=== PATIENT | female | born 1985 | race Caucasian/White ===

== ENCOUNTER → 2017-10-18 | Outpatient (CLI) | payer MEDICAID ==
[~2017-10-18] MED LIST: IOPAMIDOL (ISOVUE-370) 150 ML BTL IV ONE
== END ==
LOC: FIMAGING 10:34
PROVIDERS: ATTEND Podiatrist Primary Podiatric Medicine
DX: L97.509 Non-pressure chronic ulcer of other part of unspecified foot with unspecified severity (principal); R23.8 Other skin changes; B35.3 Tinea pedis
CPT/HCPCS: Q9967

== ENCOUNTER 2018-03-08 07:52 | Day surgery (SDC) | payer MEDICAID ==
--- NOTE | 2018-03-08 07:21 | PDHPUP ---
History & Physical Update H&P update statement: This history and physical update is based on an assessment of the patient which was completed after admission or registration (within 24 hours), but prior to the surgery/procedure. H&P update: H&P reviewed & patient examined H&P changes: none
[2018-03-08] MEDS ORDERED: POLYMYXIN B SULFATE 500,000 UNIT/10 ML SYR IRR ONE ×2 (08:22→10:36)
[2018-03-08] MEDS ORDERED: EPINEPHrine 1 MG/ML INJ ONE (08:22)
[2018-03-08] MEDS ORDERED: BUPIVACAINE 0.25% 30 ML SDV ONE (08:22)
[2018-03-08] MEDS ORDERED: BACITRACIN 50,000 UNITS/10 ML SYR IRR ONE ×2 (08:23→10:37)
[2018-03-08] MEDS ORDERED: ceFAZolin 2 GM/DEXTROSE 100 ML IV ONE (08:46)
[2018-03-08] MEDS ORDERED: LR 1,000 ML IV ONE (08:47)
[2018-03-08] MEDS ORDERED: LIDOCAINE 1% 2 ML INJ ID PRN (08:47)
[2018-03-08] MEDS ORDERED: LIDOCAINE 2% 5 ML SDV ONE (09:51)
--- NOTE | 2018-03-08 09:55 | PDANEPAE ---
ANE History of Present Illness here for toe amputation ANE Past Medical History - Cardiovascular History Hx Hypertension: No Hx Arrhythmias: No Hx Chest Pain: No Hx Coronary Artery / Peripheral Vascular Disease: Yes Hx CHF / Valvular Disease: No Hx Palpitations: No Cardiovascular History Comment: microvascular disease of right foot - Pulmonary History Hx COPD: No Hx Asthma/Reactive Airway Disease: No Hx Recent Upper Respiratory Infection: No Hx Oxygen in Use at Home: No Hx Sleep Apnea: No Sleep Apnea Screening Result - Last Documented: Negative Pulmonary History Comment: seasonal allergies with cough - Neurologic History Hx Cerebrovascular Accident: No Hx Seizures: No Hx Dementia: No - Endocrine History Hx Diabetes: No Obesity: yes, moderate - Renal History Hx Renal Disorders: No - Liver History Hx Hepatic Disorders: No - Neurological & Psychiatric Hx Hx Neurological and Psychiatric Disorders: Yes 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 depth perception issues - Cancer History Hx Cancer: No - Congenital Disorder History Hx Congenital Disorders: Yes Congenital History Comment: high cholesterol - GI History Hx Gastrointestinal Disorders: Yes Gastrointestinal History Comment: elimination issues - Other Health History Other Health History: left foot may has problems with wound issues. seasonique for heavy menstrution - Chronic Pain History Chronic Pain: Yes (neck on right spasms into right shoulder) - Surgical History Prior Surgeries: major procedures as an toddler dorsal rhizotomy. last surgery age 14 ANE Review of Systems Review of systems is: negative Review of Systems: - Exercise capacity METS (RN): 2 METS ANE Patient History - Allergies Allergies/Adverse Reactions: escitalopram oxalate [From Lexapro] Allergy (Verified 03/07/18 16:30) Other-Enter Comments Latex, Natural Rubber Allergy (Verified 03/07/18 16:30) Rash lorazepam [From Ativan] Allergy (Verified 03/07/18 16:30) Other-Enter Comments olanzapine [From Zyprexa] Allergy (Verified 03/07/18 16:30) Other-Enter Comments - Home Medications Home medications: home medication list seen and reviewed Home Medications: .Seasonique 04/30/13 [Last Taken 03/07/18] Inulin [Fiber Gummies] 04/30/13 [Last Taken 02/15/18] Melatonin [Melatonin 5 mg] 04/30/13 [Last Taken 03/07/18 21:00] Simvastatin [Zocor 10 mg (RX)] 08/13/13 [Last Taken 03/07/18 21:00] Oxybutynin 03/07/18 [Last Taken 03/07/18 21:00] Aleve 220 MG (*) 220 mg PO PRN 03/08/18 [Last Taken 03/01/18] - NPO status NPO Status: no food or drink >8 hours NPO Since - Liquids (Date): 03/07/18 NPO Since - Liquids (Time): 21:00 NPO Since - Solids (Date): 03/07/18 NPO Since - Solids (Time): 17:00 - Smoking Hx Smoking Status: Never smoked - Family Anes Hx Family Hx Anesthesia Complications: none ANE Labs/Vital Signs - Vital Signs Vital Signs: reviewed preoperatively; see RN documention for details Blood Pressure: 130/85 Heart Rate: 96 Respiratory Rate: 16 O2 Sat (%): 94 Height: 170.18 cm Weight: 102.8 kg ANE Physical Exam - Airway Neck exam: FROM Mallampati Score: Class 2 Mouth exam: normal dental/mouth exam - Pulmonary Pulmonary: no respiratory distress - Cardiovascular Cardiovascular: regular rate and rhythym - ASA Status ASA Status: III ANE Anesthesia Plan Anesthesia Plan: [facility] Anesthesia: popliteal SNB
[2018-03-08] MEDS ORDERED: MIDAZOLAM 2 MG/2 ML VIAL IVP ONE (10:18)
[2018-03-08] MEDS ORDERED: fentaNYL 100 MCG/2 ML INJ ONE (10:22)
[2018-03-08] MEDS ORDERED: PROPOFOL/EMULSION 500 MG/50 ML BOTTLE IV ONE (10:24)
--- NOTE | 2018-03-08 11:31 | POSTOPPROG ---
Post Op Note Date of Operation: 03/08/18 Surgeon: Jimmy Valencia Carrier Washer: none Anesthesiologist: mikel Anesthesia: IV Sedation Pre-op Diagnosis: ulcers with cellulitis right 2-4 digits Post-op Diagnosis: same Indication: infection Procedure: disarticulation digits 2-4 right Findings: none Inf/Abcess present in the surg proc area at time of surgery?: No Depth: Deep Incisional (Fascial) EBL: Minimal Total fluids administered: 10cc .25% marcaine plain Complications: none Drains: Other (none)
--- NOTE | 2018-03-08 11:51 | POSTANESTH ---
Post Anesthetic Evaluation Cardiovascular Status: Normal, Stable Respiratory Status: Normal, Stable Level of Consciousness/Mental Status: Mildly Sleepy, Arousable Pain Control: Adequate, Prn Tx Ordered Nausea/Vomiting Control: Adequate, Prn Tx Ordered Complications Possibly Related to Anesthesia: None Noted
[2018-03-09 15:36] VITALS: BP 130/85
--- NOTE | 2018-03-09 21:49 | GOP ---
[f rep st] OPERATIVE REPORT DATE OF OPERATION: 03/08/2018 SURGEON: Jimmy Valencia DPM RECYCLING ATTENDANT: None. ANESTHESIA: Local with MAC. ANESTHESIOLOGIST: Dr. Varma. PREOPERATIVE DIAGNOSIS: 1. Ulcerations, 2nd through 4th digits, right foot. 2. Cellulitis, right foot. POSTOPERATIVE DIAGNOSIS: 1. Ulcerations, 2nd through 4th digits, right foot. 2. Cellulitis, right foot. PROCEDURE PERFORMED: 1. Amputation, right 2nd digit. 2. Amputation, right 3rd digit. 3. Amputation, right 4th digit. FINDINGS: ESTIMATED BLOOD LOSS: Minimal. DESCRIPTION OF PROCEDURE: Patient presented to [facility] and was cleared for the inte nded procedure. Patient was taken to the operating room and placed on the table in supine position. IV sedation was started per the anesthesia department. A popliteal nerve block was given at this ti me by anesthesia, as well. I then used some local anesthetic in an infiltrative nerve block fashion around the surgical site. Upon completion of this, the foot was prepped, scrubbed, and draped in usu al sterile fashion. Following exsanguination by elevation and Esmarch bandage, pneumatic ankle tourn iquet was inflated to 225 mmHg. At this time, attention was directed to the 2nd through 4th digits o f the right foot. The obvious cellulitis and ulcerations were appreciable. Upon some debridement of the ulceration, it was noted that the ulcerative tissue went down to the bone on each of these 3 dig its. It was decided that amputation would be necessary. At this time, 2 converging semi-elliptical incisions were made, running from medial to lateral, starting in the 1st intermetatarsal space over t oward the 4th intermetatarsal space. These 2 incisions were then carried deep, utilizing sharp and b breanna dissection to make sure that all neurovascular structures were identified and retracted at this time. All superficial bleeders were cauterized. The extensor and flexor tendons were pulled distall y before being transected and dissection was carried down to the metatarsophalangeal joint level of a ll 3 joints. At this time, disarticulation of these joints was performed. Upon completion of this, good healthy tissue was appreciable. There was no ascending cellulitis appreciable at this time. Th e area was then flushed in a pulse lavage fashion with 3 L of antibiotic rinse before deep closure wa s obtained with 3-0 Vicryl followed by subcutaneous closure with 5-0 Vicryl and skin closure with 4 a nd 5-0 nylon. The area was then dressed with Betadine-soaked Adaptics, 4x4s, Nikia, and Coban. The patient was taken to recovery room with vital signs stable, vascular supply intact to the remaining d igits, after the pneumatic ankle tourniquet had been released for a total tourniquet time of 25 minut es. SURGEON: Jimmy Valencia DPM. PATHOLOGY: Soft tissue specimen sent for culture and sensitivity. HEMOSTASIS: PAT at 225 mmHg x 25 minutes. MATERIALS: None. INJECTABLES: 10 cc 0.25% Marcaine plain preoperatively. COMPLICATIONS: None. /[id number]/MODL
== END 2018-03-08 13:30 | disposition home or self-care (01) ==
LOC: FSGY 07:52
PROVIDERS: ATTEND Podiatrist Primary Podiatric Medicine
PROC: 0Y6R0Z0 Detachment at Right 2nd Toe, Complete, Open Approach (ICD-10-PCS; principal; 2018-03-08 10:00)
PROC: 0Y6V0Z0 Detachment at Right 4th Toe, Complete, Open Approach (ICD-10-PCS; principal; 2018-03-08 10:00)
PROC: 0Y6T0Z0 Detachment at Right 3rd Toe, Complete, Open Approach (ICD-10-PCS; principal; 2018-03-08 10:00)
DX: L97.519 Non-pressure chronic ulcer of other part of right foot with unspecified severity (principal); L03.031 Cellulitis of right toe; G80.9 Cerebral palsy, unspecified
CPT/HCPCS: J0171; J0690; J2250; J2704; J3010